=== PATIENT | male | born 1970 | race Two or more races ===

== ENCOUNTER 2019-07-18 18:12 | Inpatient (IN) | payer MEDICAID, OTHER ==
[~2019-07-18] VITALS: Ht 172.7 cm; Wt 74.9 kg
[2019-07-18 18:57] LABS: Urine Bacteria NONE SEEN /hpf (None Seen); Urine Blood Negative /uL (Negative); Urine WBC <1 /hpf (0 - 3)
[2019-07-18 18:58] LABS: Basophils # (auto) 0.1 uL; Basophils % (auto) 0.3 % (0.0-2.0); Eosinophils # (auto) 0 uL; Eosinophils % (auto) 0.2 % (0.0-7.0); Hemoglobin 16.7 g/dL (13.5-17.5); Lymphocytes # (auto) 1.1 uL; Lymphocytes % (auto) 5.2 % (10.0-50.0); Mean Corpuscular Hemoglobin 31.2 pg (28.0-32.0); Mean Corpuscular Hgb Conc. 34.8 g/dL (32.0-36.0); Mean Corpuscular Volume 89.7 fL (80.0-100.0); Monocytes # (auto) 1.7 uL; Monocytes % (auto) 8.2 % (0.0-12.0); Neutrophils # (auto) 18.1 uL; Neutrophils % (auto) 86.1 % (37.0-80.0); Platelet Count (auto) 335 10^3/uL (140-450); Red Blood Cells 5.36 10^6/uL (4.5-5.90); Red Cell Distribution Width 12.7 % (11.8-14.3); White Blood Cell 21.1 10^3/uL (4.4-10.8)
[2019-07-18 19:17] LABS: Albumin 4.6 g/dL (3.4-5.0); BUN/Creatinine Ratio 7.1; Calcium 9.8 mg/dL (8.5-10.1); Potassium 3.6 mmol/L (3.5-5.1)
[2019-07-18 19:19] LABS: Bilirubin, Total 1.9 mg/dL (0.2-1.0); Total Protein 8.8 g/dL (6.4-8.2)
[2019-07-18 23:34] LABS: Lactic Acid w/Reflex 3.6 mmol/L (0.4-2.0)
[2019-07-19] MEDS ORDERED: IOHEXOL 300 MG/ML 100ML BOTTLE IJ ONE (00:47)
[2019-07-19] MEDS ORDERED: SODIUM CHLORIDE 0.9% 3,000 ML IV ONE (02:00)
[2019-07-19] MEDS ORDERED: PIPERACILLIN-TAZOB 3.375GM 100 ML IV ONE (02:45)
[2019-07-19] MEDS ORDERED: VANCOMYCIN 1GM/250ML 250 ML IV ONE (03:45)
[2019-07-19 04:40] LABS: INR 1.01 (0.9-1.15); Partial Thromboplastin Time 27.2 sec (23.64-32.05)
[2019-07-19] MEDS ORDERED: SODIUM CHLORIDE 0.9% 1,000 ML IV ONE (05:45)
[2019-07-19] MEDS ORDERED: VANCOMYCIN PER PHARMACY 0 MG IV SCH (06:15)
[2019-07-19] MEDS ORDERED: HYDROcodone-ACET 5/325MG TAB PO PRN (06:15)
[2019-07-19] MEDS ORDERED: DEXTROSE (50%) 50ML SYRG IV PRN ×2 (06:15→06:30)
[2019-07-19] MEDS ORDERED: ONDANSETRON HCL 4 MG/2 ML VIAL IV PRN (06:15)
[2019-07-19] MEDS ORDERED: MORPHINE SULF INJ 2 MG/ML SYRINGE 1ML IV PRN (06:15)
[2019-07-19] MEDS ORDERED: ACETAMINOPHEN 500 MG TAB PO PRN (06:15)
[2019-07-19 06:56] LABS: Basophils # (auto) 0.1 uL; Basophils % (auto) 0.4 % (0.0-2.0); Eosinophils # (auto) 0 uL; Hemoglobin 13.9 g/dL (13.5-17.5); Lymphocytes # (auto) 1.3 uL; Lymphocytes % (auto) 8.6 % (10.0-50.0); Mean Corpuscular Hemoglobin 31.5 pg (28.0-32.0); Mean Corpuscular Hgb Conc. 34.8 g/dL (32.0-36.0); Mean Corpuscular Volume 90.4 fL (80.0-100.0); Neutrophils # (auto) 11.7 uL; Nucleated Red Blood Cells % 0.1 %; Platelet Count (auto) 251 10^3/uL (140-450); Red Blood Cells 4.43 10^6/uL (4.5-5.90); Red Cell Distribution Width 12.4 % (11.8-14.3); White Blood Cell 15.1 10^3/uL (4.4-10.8)
[2019-07-19 07:13] LABS: BUN/Creatinine Ratio 7.9; Potassium 3.6 mmol/L (3.5-5.1)
--- NOTE | 2019-07-19 07:36 | NUR ---
MS admit from ER MARY ELLEN WILCOX admitted to tele/MS after SBAR received. Patient oriented to Vale Curtis RN, unit, room, bed, and unit policies regarding patient care and visiting hours. Patient weighed by bed scale and encouraged to call if he needs something. All questions and concerns addressed, patient verbalized understanding. Note: Patient on NPO, ambulatory, awake, oriented x4. Family at bedside.
--- NOTE | 2019-07-19 08:00 | NUR ---
NS drip started as ordered. Patient on NPO as ordered.
[2019-07-19 09:00] VITALS: BP_SYST 106; BP_SYST 133; BP_DIAS 61; BP_DIAS 77
[2019-07-19] MEDS: SODIUM CHLORIDE 0.9% 1,000 ML IV SCH ×2 (09:23→19:35)
--- NOTE | 2019-07-19 10:08 | NUR ---
Dr. Brantley at bedside. ordered Clear Liquid Diet, ordered to collect urine specimen.
[2019-07-19] MEDS ORDERED: InsuLIN REG 1unit/0.01ml Soln (100units/ml) SC SCH (12:00)
[2019-07-19] MEDS ORDERED: ACCU-CHEK COMFORT CURVE STRIP VI SCH (12:00)
[2019-07-19 12:20] LABS: Lactic Acid w/Reflex 2.5 mmol/L (0.4-2.0)
[2019-07-19] MEDS: ACCU-CHEK COMFORT CURVE STRIP VI SCH ×2 (12:39→17:49)
[2019-07-19] MEDS: InsuLIN REG 1unit/0.01ml Soln (100units/ml) SC SCH ×2 (12:40→18:02)
[2019-07-19 13:00] VITALS: BP 129/83
[2019-07-19] MEDS: FAMOTIDINE (10MG/ML) 2ML VL IV SCH ×2 (13:04→21:53)
[2019-07-19] MEDS: PIPERACILLIN-TAZOB 3.375GM 100 ML IV SCH ×2 (13:05→17:48)
--- NOTE | 2019-07-19 13:57 | NUR ---
Urine specimen sent to Laboratory.
[2019-07-19 14:10] LABS: Urine WBC None Seen /hpf (0 - 3)
[2019-07-19 14:37] LABS: Urine Bacteria NONE SEEN /hpf (None Seen); Urine Blood Negative /uL (Negative); Urine Specific Gravity 1.022 (1.001-1.035)
[2019-07-19 14:43] LABS: Alcohol, Urine < 3.0 mg/dL (0-5); Amphetamine Screen, Urine NEGATIVE (NEGATIVE); Barbiturate Scree,Urine NEGATIVE (NEGATIVE); Benzodiazephine Screen, Urine NEGATIVE (NEGATIVE); Cannabinoid Screen, Urine POSITIVE (NEGATIVE); Cocaine Screen, Urine NEGATIVE (NEGATIVE); Opiate Scree,Urine NEGATIVE (NEGATIVE); Phencyclidine Screen, Urine NEGATIVE (NEGATIVE)
[2019-07-19 17:00] VITALS: BP 110/62
[2019-07-19] MEDS: VANCOMYCIN 1GM/250ML 250 ML IV SCH (17:48)
--- NOTE | 2019-07-19 19:35 | NUR ---
Opening Shift Note Assumed care of patient, awake and alert. Family at bedside. No S/S of distress/SOB or pain. Bed in lowest locked position, side rails up x2, call light within reach. Instructed on POC and to call for assist PRN, will continue to monitor for changes Q1hr and PRN.
[2019-07-19 22:03] VITALS: BP 142/88
[2019-07-20] MEDS: PIPERACILLIN-TAZOB 3.375GM 100 ML IV SCH ×4 (00:06→18:15)
[2019-07-20] MEDS: ACCU-CHEK COMFORT CURVE STRIP VI SCH ×4 (00:08→18:14)
[2019-07-20] MEDS: InsuLIN REG 1unit/0.01ml Soln (100units/ml) SC SCH ×4 (00:08→18:27)
[2019-07-20] MEDS: VANCOMYCIN 1GM/250ML 250 ML IV SCH ×2 (04:18→17:25)
[2019-07-20 05:17] VITALS: BP 149/93
[2019-07-20 06:33] LABS: BUN/Creatinine Ratio 8.6; Calcium 8.9 mg/dL (8.5-10.1); Magnesium 2.3 mg/dL (1.6-2.6); Potassium 3.2 mmol/L (3.5-5.1)
--- NOTE | 2019-07-20 06:55 | NUR ---
Regarding IV Patient reporting leaking from IV site to left AC. IV assessed, no leaking noted when flushed and no s/s of infiltration noted. Patient refusing to have ordered antibiotics restarted at this time. Will make dayshift RN aware and continue to monitor.
--- NOTE | 2019-07-20 07:00 | NUR ---
Closing Note Patient ambulating around unit, steady gait noted. No s/s of distress. Care endorsed to jennifer RN.
--- NOTE | 2019-07-20 07:15 | NUR ---
Opening Shift Note Report received and assumed care of patient, awake and alert. No S/S of distress/SOB or pain. Bed in lowest locked position, side rails up x2, call light within reach. Instructed on POC and to call for assist PRN, will continue to monitor for changes Q1hr and PRN.
--- NOTE | 2019-07-20 07:15 | NUR ---
RECEIVED IV INFILTRATED,PATIENT C/O PAIN FROM IV SITE/LEFT AC,SITE DISCONTINUED
--- NOTE | 2019-07-20 08:00 | NUR ---
IV G#22 TO RIGHT FOREARM STARTED
[2019-07-20 08:20] LABS: Basophils # (auto) 0.1 uL; Basophils % (auto) 0.9 % (0.0-2.0); Eosinophils # (auto) 0.1 uL; Eosinophils % (auto) 0.7 % (0.0-7.0); Hematocrit 41.3 % (41.0-53.0); Hemoglobin 14.6 g/dL (13.5-17.5); Lymphocytes # (auto) 1.2 uL; Lymphocytes % (auto) 12.3 % (10.0-50.0); Mean Corpuscular Hemoglobin 31.9 pg (28.0-32.0); Mean Corpuscular Hgb Conc. 35.4 g/dL (32.0-36.0); Monocytes # (auto) 1.1 uL; Monocytes % (auto) 10.9 % (0.0-12.0); Neutrophils # (auto) 7.6 uL; Neutrophils % (auto) 75.2 % (37.0-80.0); Nucleated Red Blood Cells % 0.1 %; Platelet Count (auto) 255 10^3/uL (140-450); Red Blood Cells 4.59 10^6/uL (4.5-5.90); Red Cell Distribution Width 12.4 % (11.8-14.3)
[2019-07-20] MEDS: SODIUM CHLORIDE 0.9% 1,000 ML IV SCH (08:55)
[2019-07-20 09:00] VITALS: BP 137/73
--- NOTE | 2019-07-20 10:00 | NUR ---
MD VISIT HERE TO SEE AND EXAMINED PATIENT,RECEIVED ORDERS
[2019-07-20] MEDS ORDERED: POTASSIUM CHLORIDE 60 MEQ, LIDOCAINE 1% (LOCAL ANESTH.) 6 ML in SODIUM CHL 0.9% 500 ML IV ONE (10:15)
[2019-07-20] MEDS: FAMOTIDINE (10MG/ML) 2ML VL IV SCH ×2 (11:12→21:56)
[2019-07-20 11:51] LABS: Hepatitis B Surface Antibody Negative
[2019-07-20 12:30] LABS: Hepatitis A Total Antibody Negative
[2019-07-20 13:00] VITALS: BP 152/95
[2019-07-20] MEDS ORDERED: GOLYTELY 4L KIT PO ONE (13:15)
[2019-07-20] MEDS ORDERED: GADOTERIDOL 279.3mg/mL 20ml Vial IV ONE (14:05)
--- NOTE | 2019-07-20 14:20 | NUR ---
UROLOGY CARA LEBRON HERE TO SEE PATIENT,STATED PATIENT WILL BE FOLLOW UP OPS AT THE UROLOGY OFFICE
--- NOTE | 2019-07-20 14:20 | NUR ---
TO MRI DEPT
[2019-07-20 14:39] LABS: Hepatitis B Core Total AB Negative; Hepatitis B Surface Antigen Negative (Negative); Hepatitis C Antibody Negative (Negative)
[2019-07-20 17:00] VITALS: BP 124/78
--- NOTE | 2019-07-20 17:30 | NUR ---
Golytely prep started,explain indication and expected outcome of frequent bowel movement,patient verbalized understanding.
--- NOTE | 2019-07-20 18:00 | NUR ---
family visiting at bedside
--- NOTE | 2019-07-20 19:14 | NUR ---
Opening Shift Note Assumed care of patient, awake and alert x4. No S/S of distress/SOB or pain. Instructed on POC and to call for assist PRN, will continue to monitor for changes Q1hr and PRN. Call light is within reach, side rails up x2, bed is in lowest position.
[2019-07-20 21:54] VITALS: BP 149/93
[2019-07-20] MEDS: ATORVASTATIN 20 MG TAB PO SCH (21:57)
[2019-07-21] MEDS: PIPERACILLIN-TAZOB 3.375GM 100 ML IV SCH ×4 (00:02→18:10)
[2019-07-21] MEDS: ACCU-CHEK COMFORT CURVE STRIP VI SCH ×4 (00:03→18:10)
[2019-07-21] MEDS: InsuLIN REG 1unit/0.01ml Soln (100units/ml) SC SCH ×4 (00:03→18:31)
[2019-07-21] MEDS: VANCOMYCIN 1GM/250ML 250 ML IV SCH ×4 (01:07→23:01)
[2019-07-21] MEDS: SODIUM CHLORIDE 0.9% 1,000 ML IV SCH ×2 (04:53→11:35)
[2019-07-21 05:04] VITALS: BP 142/93
[2019-07-21 06:53] LABS: Basophils # (auto) 0.1 uL; Basophils % (auto) 0.7 % (0.0-2.0); Eosinophils # (auto) 0.1 uL; Eosinophils % (auto) 0.9 % (0.0-7.0); Hematocrit 39.3 % (41.0-53.0); Hemoglobin 13.7 g/dL (13.5-17.5); Lymphocytes # (auto) 1.3 uL; Lymphocytes % (auto) 15.5 % (10.0-50.0); Mean Corpuscular Hemoglobin 31.3 pg (28.0-32.0); Mean Corpuscular Hgb Conc. 34.9 g/dL (32.0-36.0); Mean Corpuscular Volume 89.5 fL (80.0-100.0); Monocytes # (auto) 0.9 uL; Monocytes % (auto) 11.6 % (0.0-12.0); Neutrophils # (auto) 5.8 uL; Neutrophils % (auto) 71.3 % (37.0-80.0); Platelet Count (auto) 264 10^3/uL (140-450); Red Blood Cells 4.39 10^6/uL (4.5-5.90); Red Cell Distribution Width 12.5 % (11.8-14.3); White Blood Cell 8.1 10^3/uL (4.4-10.8)
[2019-07-21 06:59] LABS: Potassium 3.3 mmol/L (3.5-5.1)
[2019-07-21 07:11] LABS: Albumin 3.5 g/dL (3.4-5.0); BUN/Creatinine Ratio 4.8; Bilirubin, Total 1.5 mg/dL (0.2-1.0); Calcium 8.7 mg/dL (8.5-10.1)
--- NOTE | 2019-07-21 07:15 | NUR ---
Opening Shift Note Report received and assumed care of patient, awake and alert. No S/S of distress/SOB or pain. Bed in lowest locked position, side rails up x2, call light within reach. Instructed on POC and to call for assist PRN,Keep NPO for surgery,verbalized understanding and compliant. will continue to monitor for changes Q1hr and PRN.
--- NOTE | 2019-07-21 08:00 | NUR ---
TO OPS HOLD AREA VIA BED,FOR ANAL EXAMINATION UNDER ANESTHESIA ,ANAL FISTULOTOMY.REPORT GIVEN TO EDUARDO Torres
[2019-07-21] MEDS ORDERED: SUCCINYLCHOLINE CHLORIDE 20 MG/ML 10ML VIAL IV ONE (08:22)
[2019-07-21] MEDS ORDERED: LIDOCAINE 1% (LOCAL ANESTH.) PF 5ml SDV ONE (08:22)
[2019-07-21] MEDS ORDERED: MIDAZOLAM HCL 1MG/1ML-2 ML VIAL ONE (08:24)
[2019-07-21] MEDS ORDERED: ROCURONIUM 10MG/ML 10ML VIAL IV ONE (08:25)
[2019-07-21] MEDS ORDERED: ETOMIDATE (2MG/ML) 20ML VIAL IV ONE (08:25)
[2019-07-21] MEDS ORDERED: METOCLOPRAMIDE HCL 5MG/ml INJ 2ml VIAL ONE (08:31)
[2019-07-21] MEDS ORDERED: fentaNYL CITRATE 100 MCG/2 ML VL ONE (08:40)
[2019-07-21] MEDS ORDERED: hydrALAZINE HCL 20 MG/ML VL ONE (08:51)
[2019-07-21 09:00] VITALS: BP 141/100
[2019-07-21] MEDS ORDERED: ONDANSETRON HCL 4 MG/2 ML VIAL IV PRN (09:00)
[2019-07-21] MEDS ORDERED: NALOXONE HCL 0.4 MG/ML VIAL IV PRN (09:00)
[2019-07-21] MEDS ORDERED: ACCU-CHEK COMFORT CURVE STRIP VI ONE (09:00)
[2019-07-21] MEDS ORDERED: hydrALAZINE HCL 20 MG/ML VL IV PRN (09:00)
[2019-07-21] MEDS ORDERED: HYDROmorphone HCL 2 MG/ML VL IV PRN (09:00)
[2019-07-21] MEDS ORDERED: BUPIVACAINE W/ EPINEPH 0.25% INJ 50ML MDV ONE (09:06)
[2019-07-21] MEDS ORDERED: LIDOCAINE 2% JELLY 11ml (GLYDO) ONE (09:19)
[2019-07-21] MEDS ORDERED: GELATIN 1 SPONGE SIZE 100 TOP ONE (09:19)
[2019-07-21] MEDS ORDERED: GLYCOPYRROLATE 0.2 MG/ML 1ML VIAL ONE (09:30)
[2019-07-21] MEDS ORDERED: NEOSTIGMINE 1 MG/ML INJ (10mg/10ML VIAL) ONE (09:30)
[2019-07-21] MEDS ORDERED: POTASSIUM CHLORIDE 60 MEQ, LIDOCAINE 1% (LOCAL ANESTH.) 6 ML in SODIUM CHL 0.9% 500 ML IV ONE (10:00)
[2019-07-21] MEDS: HYDROmorphone HCL 2 MG/ML VL IV PRN ×2 (10:02→10:16)
--- NOTE | 2019-07-21 10:20 | NUR ---
Received report from REFINERY PIPELINE OPERATOR re patient status and for continuation of care
--- NOTE | 2019-07-21 10:30 | NUR ---
RECEIVED FROM PACU VIA BED AWAKE ALERT ORIENTED ,NO DISTRESS NO DISCOMFORT O2 AT [address]ULA IN [address],FAMILY AT BEDSIDE.VITAL SIGNS TAKEN TEMP:98.8,HR85,RR18 SATURATING 98%,BP135/78.CALL LIGHT WITHIN [facility] PATIENT REMINDED INSTRUCTED TO CALL FOR ASSISTANCE.
--- NOTE | 2019-07-21 11:30 | NUR ---
PATIENT C/O NAUSEA,VOMITED MOSTLY WATER (HAD A BOX OF APPLE JUICE) EXPLAIN TO PATIENT THAT HE HAD SOME NAUSEA MEDICATION IN PACU,ENCOURAGED TO HAVE ICE CHIPS ONLY FOR NOW.PATIENT VERBALIZED UNDERSTANDING.
[2019-07-21] MEDS: FAMOTIDINE (10MG/ML) 2ML VL IV SCH ×2 (11:40→21:41)
--- NOTE | 2019-07-21 12:19 | NUR ---
NUTRITION ASSESSMENT NOTES Please refer to link notes of nutrition screen form filed under the intervention section of the plan of care for further details. Est. Needs: 1850 kcal to 2250 kcal (25-30 kcal/kgBW), 75 gms to 95 gms pro (1.0-1.2 gms/kgBW). Will continue to monitor pertinent labs and reassess nutrient need prn Thank you. Addendum: 07/21/19 at [address] Amended: Links added.
[2019-07-21 13:00] VITALS: BP 135/78
--- NOTE | 2019-07-21 16:39 | NUR ---
assessment Patient is a 48 year old male who is alert and oriented. Patients cognitive abilities are intact. Prior to admission patient lived home with family and functioned independently. Patient informed me he is able to care for his own ADLs. Per patient he will return home to his prior living arrangements post discharge and family will transport him home. Patient has no insurance. Patient has been assessed by Van Edgar of [facility]. Patient may qualify for [employer] if she brings back all her paperwork. I have provided patient with resources for [facility], Dr. Farrell, and [facility] urgent care for follow up visits. I have provided patient with a prescription card from community assistance program. Patient has no post discharge needs at this time. I informed patient he has a right to speak to a social media designer regarding all care. I informed patient he has a right to participate in any and all discharge planning. Patient does not have a POA and advanced directive. I have offered patient information on POA and advanced directives. I informed the patient the advantages and benefits of having an Advanced Directive. Patient verbalized understanding and agreed to discharge plan. Addendum: 07/21/19 at 1640 by Sharlene OKEEFE Amended: Links added.
[2019-07-21 17:07] VITALS: BP 119/86
--- NOTE | 2019-07-21 18:00 | NUR ---
Oob ambulate ad asia no distress,c/o slight discomfort but able to tolerate it.
--- NOTE | 2019-07-21 19:20 | NUR ---
No distress no discomfort,report given to incoming noc shift RN
--- NOTE | 2019-07-21 19:20 | NUR ---
Opening Shift Note Assumed care of patient, awake and alert x4. No S/S of distress/SOB or pain. Family is at bedside. Instructed on POC and to call for assist PRN, will continue to monitor for changes Q1hr and PRN. Call light is within reach, side rails up x2, bed is in lowest position.
[2019-07-21] MEDS: ATORVASTATIN 20 MG TAB PO SCH (21:41)
[2019-07-21 22:00] VITALS: BP 127/88
--- NOTE | 2019-07-21 22:00 | NUR ---
SITZ BATH COMPLETE.
[2019-07-22] MEDS: ACCU-CHEK COMFORT CURVE STRIP VI SCH ×3 (00:11→12:15)
[2019-07-22] MEDS: InsuLIN REG 1unit/0.01ml Soln (100units/ml) SC SCH ×3 (00:11→12:15)
[2019-07-22] MEDS: PIPERACILLIN-TAZOB 3.375GM 100 ML IV SCH ×3 (00:11→12:14)
[2019-07-22] MEDS: SODIUM CHLORIDE 0.9% 1,000 ML IV SCH (00:55)
--- NOTE | 2019-07-22 02:30 | NUR ---
Patient had a BM, stated it was small and looked like a small black ball came out that looked like rubber band.
[2019-07-22 05:00] VITALS: BP 141/94
[2019-07-22 06:13] LABS: Basophils # (auto) 0.1 uL; Eosinophils # (auto) 0.1 uL; Eosinophils % (auto) 0.5 % (0.0-7.0); Hematocrit 42.2 % (41.0-53.0); Hemoglobin 14.6 g/dL (13.5-17.5); Lymphocytes # (auto) 1.5 uL; Mean Corpuscular Hemoglobin 31.1 pg (28.0-32.0); Mean Corpuscular Hgb Conc. 34.6 g/dL (32.0-36.0); Mean Corpuscular Volume 89.9 fL (80.0-100.0); Monocytes # (auto) 1.3 uL; Monocytes % (auto) 12.5 % (0.0-12.0); Neutrophils # (auto) 7.6 uL; Nucleated Red Blood Cells % 0.1 %; Platelet Count (auto) 292 10^3/uL (140-450); Red Cell Distribution Width 12.4 % (11.8-14.3); White Blood Cell 10.6 10^3/uL (4.4-10.8)
[2019-07-22 06:19] LABS: Potassium 3.3 mmol/L (3.5-5.1)
[2019-07-22 06:23] LABS: BUN/Creatinine Ratio 4.3; Calcium 9.5 mg/dL (8.5-10.1)
[2019-07-22] MEDS: VANCOMYCIN 1GM/250ML 250 ML IV SCH ×2 (06:59→15:00)
--- NOTE | 2019-07-22 07:40 | NUR ---
RECEIVED REPORT AND ASSUME CARE OF PT. A/OX4. DENIED S/S ACUTE DISTRESS. UPDATE PT WITH POC. BED AT LOWEST POSITION. CALL LIGHT AND BELONGINGS WITHIN REACH. WILL CONT TO MONITOR.
[2019-07-22 09:00] VITALS: BP 140/80
[2019-07-22] MEDS: FAMOTIDINE (10MG/ML) 2ML VL IV SCH (10:04)
[2019-07-22] MEDS ORDERED: POTASSIUM CHL 20 Meq TABLET PO ONE (10:15)
[2019-07-22 13:00] VITALS: BP 144/97
[2019-07-22 16:21] VITALS: BP 144/87
[2019-07-22 17:00] VITALS: BP 148/98
--- NOTE | 2019-07-22 17:34 | NUR ---
A/OX4. DENIED S/S ACUTE DISTRESS. DC INSTRUCTIONS GIVEN AND PT VERBALIZED UNDERSTANDING. EMPHASIZED NEED FOR F/U APPOINTMENT. IV DC'D. PT LEFT UNIT ACCOMPANIED BY FAMILY IN STABLE CONDITION
== END 2019-07-22 17:30 | disposition home or self-care (01) | DRG 710 ==
LOC: ER 18:23 → OVERFLOW 18:24 → CENTRAL 07-19 07:39
PROVIDERS: ADMIT Nurse Practitioner Family; ATTEND Internal Medicine
PROC: 06BY0ZC Excision of Hemorrhoidal Plexus, Open Approach (ICD-10-PCS; 2019-07-21)
PROC: 06LY3CC Occlusion of Hemorrhoidal Plexus with Extraluminal Device, Percutaneous Approach (ICD-10-PCS; principal; 2019-07-21 08:27)
DX: A41.9 Sepsis, unspecified organism (principal); E11.65 Type 2 diabetes mellitus with hyperglycemia; K76.89 Other specified diseases of liver; K61.1 Rectal abscess; E66.9 Obesity, unspecified; K64.8 Other hemorrhoids; K92.2 Gastrointestinal hemorrhage, unspecified; N28.9 Disorder of kidney and ureter, unspecified; N50.819 Testicular pain, unspecified; D18.00 Hemangioma unspecified site; E78.5 Hyperlipidemia, unspecified; E03.9 Hypothyroidism, unspecified; Z79.84 Long term (current) use of oral hypoglycemic drugs; Z68.25 Body mass index [BMI] 25.0-25.9, adult
CPT/HCPCS: 36415; 36600; 71045; 74177; 74183; 80048; 80053; 80061; 80202; 80307; 81001; 82043; 82150; 82805; 82962; 83036; 83605; 83690; 83735; 84153; 84439; 84443; 84484; 85025; 85379; 85610; 85730; 86703; 86704; 86706; 86708; 86803; 86850; 86900; 86901; 87040; 87086; 87340; G0378; J0330; J1815; J2001; J2250; J2405; J2543; J3490

== ENCOUNTER 2022-07-15 02:03 | Emergency (ER) | payer OTHER ==
[~2022-07-15] VITALS: Ht 172.7 cm; Wt 75.0 kg
[2022-07-15 04:23] LABS: Basophils # (auto) 0.1 10 ^3/uL (0-0.2); Basophils % (auto) 1.5 % (0.0-2.0); Eosinophils # (auto) 0.4 10 ^3/uL (0-0.8); Eosinophils % (auto) 3.9 % (0.0-7.0); Hematocrit 41.6 % (41.0-53.0); Hemoglobin 14.6 g/dL (13.5-17.5); Mean Corpuscular Hemoglobin 31.8 pg (28.0-32.0); Mean Corpuscular Hgb Conc. 35.1 g/dL (32.0-36.0); Mean Corpuscular Volume 90.8 fL (80.0-100.0); Monocytes # (auto) 1.1 10 ^3/uL (0-1.3); Monocytes % (auto) 11.1 % (0.0-12.0); Neutrophils % (auto) 62.5 % (37.0-80.0); Red Blood Cells 4.59 10^6/uL (4.5-5.90); Red Cell Distribution Width 12.6 % (11.8-14.3); White Blood Cell 9.6 10^3/uL (4.4-10.8)
[2022-07-15 04:42] LABS: Potassium 3.9 mmol/L (3.5-5.1)
[2022-07-15 04:46] LABS: Albumin 4.1 g/dL (3.4-5.0); BUN/Creatinine Ratio 12.4; Calcium 9.4 mg/dL (8.5-10.1)
[2022-07-15 04:49] LABS: Bilirubin, Total 1.2 mg/dL (0.2-1.0); Total Protein 7.1 g/dL (6.4-8.2)
[2022-07-15] MEDS ORDERED: METOCLOPRAMIDE HCL 5MG/ml INJ 2ml VIAL IV ONE (08:00)
[2022-07-15] MEDS ORDERED: SODIUM CHLORIDE 0.9% 1,000 ML IV ONE (08:00)
[2022-07-15] MEDS ORDERED: KETOROLAC TROMETH 30 MG/ML 1ML VIAL IV ONE (08:00)
[2022-07-15 08:03] LABS: Urine Bacteria NONE SEEN /hpf (None Seen); Urine Blood Negative /uL (Negative); Urine Specific Gravity 1.005 (1.001-1.035); Urine WBC <1 /hpf (0 - 3)
[2022-07-15 08:20] LABS: Magnesium 2.2 mg/dL (1.6-2.6)
[2022-07-15 08:34] LABS: Alcohol, Urine < 3.0 mg/dL (0-10); Amphetamine Screen, Urine NEGATIVE (NEGATIVE); Barbiturate Scree,Urine NEGATIVE (NEGATIVE); Benzodiazephine Screen, Urine NEGATIVE (NEGATIVE); Cannabinoid Screen, Urine POSITIVE (NEGATIVE); Cocaine Screen, Urine NEGATIVE (NEGATIVE); Opiate Scree,Urine NEGATIVE (NEGATIVE); Phencyclidine Screen, Urine NEGATIVE (NEGATIVE)
[2022-07-15] MEDS ORDERED: IOHEXOL 300 MG/ML 100ML BOTTLE IJ ONE (09:05)
[2022-07-15 12:19] VITALS: BP 123/84
[2022-07-15] MEDS ORDERED: METO-281 PO (12:57)
[2022-07-15] MEDS ORDERED: METF-371 PO (13:08)
[2022-07-15] MEDS ORDERED: GLIM1TAB PO (13:08)
[2022-07-15] MEDS ORDERED: OLME20TA53 PO (13:11)
[2022-07-15] MEDS ORDERED: CEFD300C2 PO (13:11)
== END 2022-07-15 13:17 | disposition home or self-care (01) ==
LOC: ER 02:05
DX: R10.32 Left lower quadrant pain (principal); I10 Essential (primary) hypertension; E11.65 Type 2 diabetes mellitus with hyperglycemia; F12.10 Cannabis abuse, uncomplicated; F17.210 Nicotine dependence, cigarettes, uncomplicated; Z79.899 Other long term (current) drug therapy
CPT/HCPCS: 36415; 74177; 80053; 80307; 81001; 83690; 83735; 85025; 93005; 96361; 96374; 96375; 99285; J1885; J2765; J7030; Q9967

== ENCOUNTER 2023-01-09 14:50 | Inpatient (IN) | payer OTHER ==
[~2023-01-09] VITALS: Ht 172.7 cm; Wt 78.0 kg
[~2023-01-09 14:50] MED LIST: CEFD300C2 PO; GLIM1TAB PO; METF-371 PO; METO-281 PO; OLME20TA53 PO
[2023-01-09 16:06] LABS: Basophils # (auto) 0.1 10 ^3/uL (0-0.2); Basophils % (auto) 0.3 % (0.0-2.0); Eosinophils # (auto) 0 10 ^3/uL (0-0.8); Hematocrit 49.7 % (41.0-53.0); Hemoglobin 16.9 g/dL (13.5-17.5); Lymphocytes # (auto) 0.6 10 ^3/uL (0.4-5.4); Lymphocytes % (auto) 3.3 % (10.0-50.0); Mean Corpuscular Hgb Conc. 34.1 g/dL (32.0-36.0); Mean Corpuscular Volume 91.2 fL (80.0-100.0); Monocytes # (auto) 0.5 10 ^3/uL (0-1.3); Monocytes % (auto) 2.9 % (0.0-12.0); Neutrophils # (auto) 17.7 10 ^3/uL (1.6-8.6); Neutrophils % (auto) 93.5 % (37.0-80.0); Nucleated Red Blood Cells % 0.3 %; Red Blood Cells 5.45 10^6/uL (4.5-5.90); Red Cell Distribution Width 13.1 % (11.8-14.3); White Blood Cell 18.9 10^3/uL (4.4-10.8)
[2023-01-09 16:34] LABS: Albumin 4.7 g/dL (3.4-5.0); Calcium 10.2 mg/dL (8.5-10.1); Potassium 4.1 mmol/L (3.5-5.1)
[2023-01-09 16:37] LABS: BUN/Creatinine Ratio 7.9 (10.0-20.0); Bilirubin, Total 2.8 mg/dL (0.2-1.0); Total Protein 8.2 g/dL (6.4-8.2)
[2023-01-09] MEDS ORDERED: LACTATED RINGER'S 2,000 ML IV ONE ×2 (16:45→17:30)
[2023-01-09] MEDS ORDERED: MAALOX PLUS or MAALOX 30 ML PO ONE (17:00)
[2023-01-09] MEDS ORDERED: LIDOCAINE VISCOUS 2% 15ML UD PO ONE (17:00)
[2023-01-09] MEDS ORDERED: FAMOTIDINE (10MG/ML) 2ML VL IV ONE (17:00)
[2023-01-09] MEDS ORDERED: ONDANSETRON HCL 4 MG/2 ML VIAL IV ONE (17:00)
[2023-01-09] MEDS ORDERED: InsuLIN R (HUMAN) 100 UNITS in SODIUM CHL 0.9% 99 ML IV SCH (17:30)
[2023-01-09] MEDS ORDERED: DEXTROSE (50%) 50ML SYRG IV PRN (17:30)
[2023-01-09] MEDS ORDERED: ACCU-CHEK COMFORT CURVE STRIP VI SCH (18:00)
[2023-01-09 18:36] LABS: Magnesium 2.1 mg/dL (1.6-2.6); Phosphorus 2.5 mg/dL (2.5-4.90)
[2023-01-09] MEDS: SOD CHL 0.9%/ KCL 20MEQ 1,000 ML IV SCH (18:44)
[2023-01-09] MEDS: ACCU-CHEK COMFORT CURVE STRIP VI SCH ×3 (19:30→22:00)
[2023-01-09] MEDS ORDERED: NITROGLYCERIN 0.4 MG SL TAB SL PRN (22:00)
[2023-01-09] MEDS ORDERED: MORPHINE SULFATE INJ 2 MG/ml SYRG IV PRN (23:15)
[2023-01-09] MEDS: hydrALAZINE HCL 20 MG/ML VL IV PRN (23:25)
[2023-01-09] MEDS: ONDANSETRON HCL 4 MG/2 ML VIAL IV PRN (23:25)
[2023-01-09] MEDS: MORPHINE SULFATE INJ 2 MG/ml SYRG IV PRN (23:26)
[2023-01-09 23:40] VITALS: BP 151/83
[2023-01-09 23:51] LABS: Urine Bacteria NONE SEEN /hpf (None Seen); Urine Blood Negative /uL (Negative); Urine Specific Gravity 1.026 (1.001-1.035); Urine WBC <1 /hpf (0 - 3)
[2023-01-10] VITALS (32 sets, daily range): BP systolic 109–153; BP diastolic 60–96
[2023-01-10] MEDS: ACCU-CHEK COMFORT CURVE STRIP VI SCH ×12 (00:21→20:31)
[2023-01-10 00:57] LABS: Anion Gap 11 (5-15); Blood Urea Nitrogen 10 mg/dL (7-18); Calcium 9.1 mg/dL (8.5-10.1); Carbon Dioxide 18 mmol/L (21-32); Chloride 109 mmol/L (98-107); GFR African American 125 mL/min; GFR Non-African American 103 mL/min; Glucose 164 mg/dL (74-106); Potassium 4.7 mmol/L (3.5-5.1); Sodium 138 mmol/L (136-145)
[2023-01-10 01:01] LABS: Alcohol, Urine < 3.0 mg/dL (0-10); Amphetamine Screen, Urine NEGATIVE (NEGATIVE); Barbiturate Scree,Urine NEGATIVE (NEGATIVE); Benzodiazephine Screen, Urine NEGATIVE (NEGATIVE); Cannabinoid Screen, Urine POSITIVE (NEGATIVE); Cocaine Screen, Urine NEGATIVE (NEGATIVE)
[2023-01-10 01:09] LABS: Opiate Scree,Urine NEGATIVE (NEGATIVE); Phencyclidine Screen, Urine NEGATIVE (NEGATIVE)
[2023-01-10] MEDS: SOD CHL 0.9%/ KCL 20MEQ 1,000 ML IV SCH ×2 (01:59→06:50)
[2023-01-10] MEDS: ONDANSETRON HCL 4 MG/2 ML VIAL IV PRN ×2 (04:06→09:16)
[2023-01-10 04:13] LABS: Basophils # (auto) 0 10 ^3/uL (0-0.2); Basophils % (auto) 0.2 % (0.0-2.0); Eosinophils # (auto) 0 10 ^3/uL (0-0.8); Hematocrit 44.1 % (41.0-53.0); Hemoglobin 15.2 g/dL (13.5-17.5); Lymphocytes # (auto) 1.1 10 ^3/uL (0.4-5.4); Lymphocytes % (auto) 7.4 % (10.0-50.0); Mean Corpuscular Hemoglobin 31.3 pg (28.0-32.0); Mean Corpuscular Hgb Conc. 34.5 g/dL (32.0-36.0); Mean Corpuscular Volume 90.9 fL (80.0-100.0); Monocytes # (auto) 1.7 10 ^3/uL (0-1.3); Monocytes % (auto) 11.8 % (0.0-12.0); Neutrophils # (auto) 11.8 10 ^3/uL (1.6-8.6); Neutrophils % (auto) 80.6 % (37.0-80.0); Nucleated Red Blood Cells % 0.1 %; Red Blood Cells 4.85 10^6/uL (4.5-5.90); Red Cell Distribution Width 13.1 % (11.8-14.3); White Blood Cell 14.6 10^3/uL (4.4-10.8)
[2023-01-10 04:21] LABS: Albumin 3.6 g/dL (3.4-5.0); Calcium 9.3 mg/dL (8.5-10.1)
[2023-01-10 04:24] LABS: BUN/Creatinine Ratio 14.3 (10.0-20.0)
[2023-01-10 04:33] LABS: Alcohol, Urine < 3.0 mg/dL (0-10); Barbiturate Scree,Urine NEGATIVE (NEGATIVE); Benzodiazephine Screen, Urine NEGATIVE (NEGATIVE); Cannabinoid Screen, Urine POSITIVE (NEGATIVE); Cocaine Screen, Urine NEGATIVE (NEGATIVE)
[2023-01-10 04:40] LABS: Urine Bacteria NONE SEEN /hpf (None Seen); Urine Blood Negative /uL (Negative); Urine WBC 3 /hpf (0 - 3)
[2023-01-10 04:41] LABS: Amphetamine Screen, Urine NEGATIVE (NEGATIVE); Opiate Scree,Urine NEGATIVE (NEGATIVE); Phencyclidine Screen, Urine NEGATIVE (NEGATIVE)
[2023-01-10 04:45] LABS: Bilirubin, Total 1.7 mg/dL (0.2-1.0); Total Protein 6.6 g/dL (6.4-8.2)
[2023-01-10] MEDS: ENOXAPARIN SOD 40 MG/0.4 ML SYRINGE SC SCH (09:44)
[2023-01-10] MEDS ORDERED: DEXTROSE (50%) 50ML SYRG IV PRN (10:00)
[2023-01-10] MEDS: SOD CHL 0.45% 1,000 ML IV SCH ×2 (10:29→20:31)
[2023-01-10] MEDS: METOCLOPRAMIDE HCL 5MG/ml INJ 2ml VIAL IV PRN ×2 (10:29→19:40)
[2023-01-10] MEDS ORDERED: IOHEXOL 300 MG/ML 100ML BOTTLE IJ ONE (12:30)
[2023-01-10] MEDS: InsuLIN REG 1unit/0.01ml Soln (100units/ml) SC SCH ×3 (12:33→20:36)
[2023-01-10 12:43] LABS: Calcium 8.9 mg/dL (8.5-10.1); Potassium 3.5 mmol/L (3.5-5.1)
[2023-01-10 12:45] LABS: BUN/Creatinine Ratio 16.7 (10.0-20.0)
[2023-01-10] MEDS: metroNIDAZOLE 500MG/100ML 100 ML IV SCH ×2 (14:40→22:21)
[2023-01-10] MEDS: MORPHINE SULFATE INJ 2 MG/ml SYRG IV PRN ×2 (15:56→20:38)
[2023-01-10 18:42] LABS: BUN/Creatinine Ratio 14.3 (10.0-20.0); Calcium 9.2 mg/dL (8.5-10.1); Potassium 3.5 mmol/L (3.5-5.1)
[2023-01-11] MEDS: ACCU-CHEK COMFORT CURVE STRIP VI SCH ×6 (00:28→20:00)
[2023-01-11] MEDS: InsuLIN REG 1unit/0.01ml Soln (100units/ml) SC SCH ×6 (00:32→20:00)
[2023-01-11] MEDS: SOD CHL 0.45% 1,000 ML IV SCH ×4 (01:45→17:46)
[2023-01-11] MEDS: MORPHINE SULFATE INJ 2 MG/ml SYRG IV PRN ×5 (02:47→21:12)
[2023-01-11] MEDS: hydrALAZINE HCL 20 MG/ML VL IV PRN (02:56)
[2023-01-11 05:00] VITALS: BP 129/78
[2023-01-11 05:52] LABS: Calcium 8.7 mg/dL (8.5-10.1); Magnesium 2.1 mg/dL (1.6-2.6); Phosphorus 2.5 mg/dL (2.5-4.90); Potassium 3.2 mmol/L (3.5-5.1)
[2023-01-11] MEDS: metroNIDAZOLE 500MG/100ML 100 ML IV SCH ×3 (06:03→22:19)
[2023-01-11] MEDS ORDERED: POTASSIUM CHLORIDE 40 MEQ, LIDOCAINE 1% (LOCAL ANESTH.) 4 ML in SODIUM CHL 0.9% 250 ML IV ONE (07:00)
[2023-01-11 08:00] VITALS: BP 117/72
[2023-01-11 08:06] LABS: Basophils # (auto) 0.1 10 ^3/uL (0-0.2); Basophils % (auto) 0.4 % (0.0-2.0); Eosinophils # (auto) 0 10 ^3/uL (0-0.8); Hemoglobin 16.4 g/dL (13.5-17.5); Lymphocytes # (auto) 1.1 10 ^3/uL (0.4-5.4); Lymphocytes % (auto) 5.9 % (10.0-50.0); Mean Corpuscular Hemoglobin 31.5 pg (28.0-32.0); Mean Corpuscular Hgb Conc. 34.9 g/dL (32.0-36.0); Mean Corpuscular Volume 90.1 fL (80.0-100.0); Monocytes # (auto) 1.9 10 ^3/uL (0-1.3); Neutrophils # (auto) 16.3 10 ^3/uL (1.6-8.6); Neutrophils % (auto) 83.7 % (37.0-80.0); Nucleated Red Blood Cells % 0.1 %; Red Blood Cells 5.22 10^6/uL (4.5-5.90); Red Cell Distribution Width 12.8 % (11.8-14.3); White Blood Cell 19.5 10^3/uL (4.4-10.8)
[2023-01-11] MEDS: cefTRIAXone 1GM/50ML D5W 50 ML IV SCH (09:37)
[2023-01-11] MEDS: ENOXAPARIN SOD 40 MG/0.4 ML SYRINGE SC SCH (09:37)
[2023-01-11] MEDS: PANTOPRAZOLE 40 MG/10 ML VIAL INJ IV SCH (09:58)
[2023-01-11] MEDS: CALCIUM CARB 500 MG CHEW TAB PO PRN ×2 (09:59→21:03)
[2023-01-11 12:00] VITALS: BP 140/98
[2023-01-11 16:00] VITALS: BP 146/90
[2023-01-11 22:00] VITALS: BP 152/102
[2023-01-12] MEDS: ACCU-CHEK COMFORT CURVE STRIP VI SCH ×6 (00:22→20:00)
[2023-01-12] MEDS: SOD CHL 0.45% 1,000 ML IV SCH ×3 (01:45→15:15)
[2023-01-12] MEDS: MORPHINE SULFATE INJ 2 MG/ml SYRG IV PRN ×4 (03:00→21:01)
[2023-01-12] MEDS: InsuLIN REG 1unit/0.01ml Soln (100units/ml) SC SCH ×6 (03:01→20:00)
[2023-01-12 05:19] LABS: Basophils # (auto) 0.1 10 ^3/uL (0-0.2); Basophils % (auto) 0.6 % (0.0-2.0); Eosinophils # (auto) 0 10 ^3/uL (0-0.8); Eosinophils % (auto) 0.1 % (0.0-7.0); Hematocrit 44.4 % (41.0-53.0); Hemoglobin 15.7 g/dL (13.5-17.5); Lymphocytes # (auto) 1.1 10 ^3/uL (0.4-5.4); Lymphocytes % (auto) 7.9 % (10.0-50.0); Mean Corpuscular Hemoglobin 31.3 pg (28.0-32.0); Mean Corpuscular Hgb Conc. 35.3 g/dL (32.0-36.0); Mean Corpuscular Volume 88.6 fL (80.0-100.0); Monocytes # (auto) 1.6 10 ^3/uL (0-1.3); Monocytes % (auto) 11.5 % (0.0-12.0); Neutrophils # (auto) 10.8 10 ^3/uL (1.6-8.6); Neutrophils % (auto) 79.9 % (37.0-80.0); Nucleated Red Blood Cells % 0.3 %; Red Blood Cells 5.01 10^6/uL (4.5-5.90); Red Cell Distribution Width 12.7 % (11.8-14.3); White Blood Cell 13.5 10^3/uL (4.4-10.8)
[2023-01-12 05:34] LABS: BUN/Creatinine Ratio 19.7 (10.0-20.0); Calcium 8.8 mg/dL (8.5-10.1); Potassium 3.3 mmol/L (3.5-5.1)
[2023-01-12] MEDS: metroNIDAZOLE 500MG/100ML 100 ML IV SCH ×3 (06:00→21:01)
[2023-01-12 08:00] VITALS: BP 136/93
[2023-01-12] MEDS: PANTOPRAZOLE 40 MG/10 ML VIAL INJ IV SCH (08:34)
[2023-01-12] MEDS: CALCIUM CARB 500 MG CHEW TAB PO PRN ×2 (08:34→12:41)
[2023-01-12] MEDS: ENOXAPARIN SOD 40 MG/0.4 ML SYRINGE SC SCH (08:35)
[2023-01-12] MEDS: cefTRIAXone 1GM/50ML D5W 50 ML IV SCH (09:00)
[2023-01-12 12:00] VITALS: BP 138/89
[2023-01-12] MEDS ORDERED: POTASSIUM EFFERVESENT TAB 25 MEQ PO ONE (15:00)
[2023-01-12 16:00] VITALS: BP 138/97
[2023-01-12 22:00] VITALS: BP 134/88
[2023-01-13] MEDS: ACCU-CHEK COMFORT CURVE STRIP VI SCH ×5 (00:20→16:00)
[2023-01-13] MEDS: MORPHINE SULFATE INJ 2 MG/ml SYRG IV PRN ×5 (02:36→17:09)
[2023-01-13] MEDS: InsuLIN REG 1unit/0.01ml Soln (100units/ml) SC SCH ×5 (04:00→16:00)
[2023-01-13] MEDS: SOD CHL 0.45% 1,000 ML IV SCH (04:35)
[2023-01-13 05:00] VITALS: BP 136/91
[2023-01-13 05:43] LABS: Basophils # (auto) 0 10 ^3/uL (0-0.2); Basophils % (auto) 0.4 % (0.0-2.0); Eosinophils # (auto) 0 10 ^3/uL (0-0.8); Eosinophils % (auto) 0.3 % (0.0-7.0); Hematocrit 42.6 % (41.0-53.0); Hemoglobin 15.9 g/dL (13.5-17.5); Lymphocytes # (auto) 1.6 10 ^3/uL (0.4-5.4); Lymphocytes % (auto) 14.4 % (10.0-50.0); Mean Corpuscular Hemoglobin 31.8 pg (28.0-32.0); Mean Corpuscular Volume 85.4 fL (80.0-100.0); Monocytes # (auto) 1.6 10 ^3/uL (0-1.3); Monocytes % (auto) 14.3 % (0.0-12.0); Neutrophils # (auto) 7.7 10 ^3/uL (1.6-8.6); Neutrophils % (auto) 70.6 % (37.0-80.0); Nucleated Red Blood Cells % 0.7 %; Red Blood Cells 4.99 10^6/uL (4.5-5.90); Red Cell Distribution Width 12.7 % (11.8-14.3); White Blood Cell 10.9 10^3/uL (4.4-10.8)
[2023-01-13 05:44] LABS: Mean Corpuscular Hgb Conc. 37.2 g/dL (32.0-36.0)
[2023-01-13 05:59] LABS: BUN/Creatinine Ratio 16.7 (10.0-20.0); Calcium 8.9 mg/dL (8.5-10.1); Potassium 3.2 mmol/L (3.5-5.1)
[2023-01-13] MEDS: metroNIDAZOLE 500MG/100ML 100 ML IV SCH ×2 (06:19→14:00)
[2023-01-13 08:00] VITALS: BP 153/105
[2023-01-13] MEDS: CALCIUM CARB 500 MG CHEW TAB PO PRN (08:19)
[2023-01-13] MEDS: cefTRIAXone 1GM/50ML D5W 50 ML IV SCH (08:22)
[2023-01-13] MEDS: PANTOPRAZOLE 40 MG/10 ML VIAL INJ IV SCH (08:23)
[2023-01-13] MEDS: ENOXAPARIN SOD 40 MG/0.4 ML SYRINGE SC SCH (08:24)
[2023-01-13] MEDS ORDERED: POTASSIUM EFFERVESENT TAB 25 MEQ PO ONE (10:30)
[2023-01-13] MEDS ORDERED: HYDR-4902 PO (10:55)
[2023-01-13] MEDS ORDERED: METR500T PO (10:55)
[2023-01-13] MEDS ORDERED: GLIM1TAB PO (10:55)
[2023-01-13] MEDS ORDERED: LEVO500T31 PO (10:55)
[2023-01-13 12:00] VITALS: BP 131/89
[2023-01-13 12:50] VITALS: BP 135/85
[2023-01-13 16:00] VITALS: BP 140/97
[2023-01-13 17:09] VITALS: BP 131/89
== END 2023-01-13 17:16 | disposition home or self-care (01) | DRG 720 ==
LOC: ER 14:50 → TELE 22:02 → ICU WEST 23:41 → CENTRAL 01-10 18:42
PROVIDERS: ADMIT Registered Nurse; ATTEND Nurse Practitioner Acute Care
DX: A41.9 Sepsis, unspecified organism (principal); E11.10 Type 2 diabetes mellitus with ketoacidosis without coma; K31.84 Gastroparesis; E11.43 Type 2 diabetes mellitus with diabetic autonomic (poly)neuropathy; I10 Essential (primary) hypertension; F17.210 Nicotine dependence, cigarettes, uncomplicated; K52.9 Noninfective gastroenteritis and colitis, unspecified; K57.32 Diverticulitis of large intestine without perforation or abscess without bleeding; F12.90 Cannabis use, unspecified, uncomplicated; R11.2 Nausea with vomiting, unspecified; Z83.3 Family history of diabetes mellitus; Z90.49 Acquired absence of other specified parts of digestive tract
CPT/HCPCS: 36415; 36600; 74177; 76705; 80048; 80053; 80307; 81001; 82010; 82805; 82962; 83036; 83690; 83735; 83930; 84100; 84484; 85025; 87040; 87081; 87086; 93005; 96361; 96365; 96375; 99291; C9113; G0378; J0696; J1815; J2001; J2405; J3490

== ENCOUNTER 2023-10-10 16:25 | Emergency (ER) | payer OTHER ==
[~2023-10-10] VITALS: Ht 170.2 cm; Wt 69.0 kg
[~2023-10-10 16:25] MED LIST changes: +HYDR-4902 PO; +LEVO500T31 PO; +METR500T PO
[2023-10-10] MEDS ORDERED: DICYCLOMINE HCL (10MG/ML) 2 ML AMPULE IM ONE (17:00)
[2023-10-10] MEDS ORDERED: ONDANSETRON HCL 4 MG/2 ML VIAL IM ONE (17:00)
[2023-10-10 17:26] LABS: Basophils # (auto) 0.1 10 ^3/uL (0-0.2); Basophils % (auto) 0.4 % (0.0-2.0); Eosinophils # (auto) 0 10 ^3/uL (0-0.8); Eosinophils % (auto) 0.2 % (0.0-7.0); Hematocrit 47.9 % (41.0-53.0); Hemoglobin 16.7 g/dL (13.5-17.5); Lymphocytes # (auto) 1.2 10 ^3/uL (0.4-5.4); Lymphocytes % (auto) 9.3 % (10.0-50.0); Mean Corpuscular Hemoglobin 31.2 pg (28.0-32.0); Mean Corpuscular Hgb Conc. 34.8 g/dL (32.0-36.0); Mean Corpuscular Volume 89.5 fL (80.0-100.0); Monocytes # (auto) 1.5 10 ^3/uL (0-1.3); Monocytes % (auto) 10.9 % (0.0-12.0); Neutrophils # (auto) 10.6 10 ^3/uL (1.6-8.6); Neutrophils % (auto) 79.2 % (37.0-80.0); Nucleated Red Blood Cells % 0.2 %; Red Blood Cells 5.35 10^6/uL (4.5-5.90); Red Cell Distribution Width 12.2 % (11.8-14.3); White Blood Cell 13.4 10^3/uL (4.4-10.8)
[2023-10-10 17:41] LABS: Chloride 94 mmol/L (98-107); Potassium 3.5 mmol/L (3.5-5.1); Sodium 131 mmol/L (136-145)
[2023-10-10 17:42] LABS: Anion Gap 12 (5-15); Calcium 9.3 mg/dL (8.7-10.4); Carbon Dioxide 25 mmol/L (20-30)
[2023-10-10 17:47] LABS: Blood Urea Nitrogen 16 mg/dL (9-23); Glucose 213 mg/dL (74-106); Lipase 42 U/L (12-53)
[2023-10-10] MEDS ORDERED: ONDANSETRON HCL 4 MG/2 ML VIAL IV ONE (18:30)
[2023-10-10 19:30] VITALS: PULSE 100; RESP 20; O2SAT 98
[2023-10-10 19:45] LABS: COVID19 ANTIGEN SOFIA FIA NEGATIVE (NEGATIVE)
[2023-10-10 19:46] LABS: Rapid Influenza A Negative (Negative); Rapid Influenza B Negative (Negative)
[2023-10-10 23:07] LABS: Urine Bacteria NONE SEEN /hpf (None Seen); Urine Blood Negative /uL (Negative); Urine Clarity Clear (Clear); Urine Color Yellow (Yellow); Urine Mucus FEW (None Seen); Urine Protein, UAD 1+ (Negative); Urine Specific Gravity 1.028 (1.001-1.035); Urine WBC 2 /hpf (0 - 3)
[2023-10-11] MEDS ORDERED: DICY10CA PO (00:39)
[2023-10-11] MEDS ORDERED: ACET500T58 PO (00:39)
[2023-10-11 01:08] VITALS: BP 131/89; PULSE 89; RESP 16; O2SAT 99
== END 2023-10-11 01:07 | disposition home or self-care (01) ==
LOC: ER 16:25 → EDBD 16:25 → EDUNIT# 16:25 → EDSEX 16:25 → ER 10-11 01:07
DX: A08.4 Viral intestinal infection, unspecified (principal); R07.89 Other chest pain; I10 Essential (primary) hypertension; E11.9 Type 2 diabetes mellitus without complications; F17.210 Nicotine dependence, cigarettes, uncomplicated; Z90.49 Acquired absence of other specified parts of digestive tract; Z79.2 Long term (current) use of antibiotics; Z79.899 Other long term (current) drug therapy; Z20.822 Contact with and (suspected) exposure to COVID-19
CPT/HCPCS: 36415; 71045; 80048; 81001; 83690; 84484; 85025; 87426; 87804; 93005; 96372; 96374; 99285; J0500; J2405